=== PATIENT | male | born 1970 | race Caucasian/White ===

== ENCOUNTER → 2017-02-13 | Outpatient (REF) | payer BC ==
[~2017-02-13] MED LIST: ASPI81TA85 PO; AVAP150T31 PO; CALC600T7 PO; CELL500T PO; CYCLO25CA PO; DICY10SO PO; FERR325T3 PO; FOLI5INJ2 PO; LEVI20TA39 PO; MAGN400C2 PO; METO1TAB7 PO; PRED10PA PO; RANI1TAB6 PO; TERA10CA3 PO
[2017-02-13 12:43] LABS: MICROSCOPIC INDICATED? NO (NO)
[2017-02-13 13:12] LABS: PHOSPHORUS LEVEL 2.7 MG/DL (2.5-4.9)
== END ==
LOC: M LAB REF 12:00
PROVIDERS: ATTEND Internal Medicine
DX: N18.5 Chronic kidney disease, stage 5 (principal); D84.9 Immunodeficiency, unspecified; Z94.0 Kidney transplant status

== ENCOUNTER → 2020-02-23 | Outpatient (REF) | payer BC ==
[~2020-02-23] MED LIST changes: +AMLO1TAB25 PO; -ASPI81TA85 PO; +ASPI81TA86 PO; +CALC-212 PO; -CALC600T7 PO; +FOLI1TAB11 PO; +METO1TAB33 PO; +NIZA150C4 PO; +PRED10TA2 PO; +RANI-397 PO; -RANI1TAB6 PO
[2020-02-24 14:46] LABS: FOLATE > 24.0 NG/ML; VITAMIN B12 LEVEL 297 PG/ML
[2020-02-24 15:47] LABS: ANISOCYTOSIS 2+; ATYPICAL LYMPH 2 % (0-5); EOSINOPHILS 1 % (0-3); LYMPHOCYTES 8 % (16-44); MONOCYTES 4 % (0-5); NEUTROPHILS 83 % (28-66); PLATELET ESTIMATE DECREASED (NORMAL); POIKILOCYTOSIS 1+
== END ==
LOC: M LAB REF 12:25
PROVIDERS: ATTEND Internal Medicine
DX: N18.9 Chronic kidney disease, unspecified (principal); D63.1 Anemia in chronic kidney disease

== ENCOUNTER 2020-03-07 18:02 | Emergency (ER) | payer BC ==
[~2020-03-07] VITALS: Ht 182.9 cm; Wt 106.3 kg
[~2020-03-07 18:02] MED LIST changes: -AMLO1TAB25 PO; -FOLI1TAB11 PO; -METO1TAB33 PO; -NIZA150C4 PO; -PRED10TA2 PO
[2020-03-07] MEDS ORDERED: ASPIRIN 81 MG CHEW TABLET PO ONE (18:30)
[2020-03-07 18:35] LABS: BASO % 0.3 % (0.0-1.0); EOS % 0.4 % (0.0-3.0); HEMATOCRIT 50.1 % (42.0-52.0); HEMOGLOBIN 15.8 g/dl (13.5-17.5); LYMPH # 0.7 10^3/uL (1.5-5.0); LYMPH % 8.8 % (24.0-44.0); MEAN CORPUSCULAR HEMOGLOBIN 28.5 pg (27.0-33.0); MEAN CORPUSCULAR HGB CONC 31.5 g/dl (32.0-36.5); MEAN CORPUSCULAR VOLUME 90.3 fl (80.0-96.0); MONO # 0.6 10^3/uL (0.0-0.8); MONO % 7.4 % (0.0-5.0); NEUTROPHILS # 6.1 10^3/uL (1.5-8.5); NEUTROPHILS % 81.6 % (36.0-66.0); PLATELET COUNT, AUTOMATED 136 10^3/uL (150-450); RED BLOOD COUNT 5.55 10^6/uL (4.30-6.10); WHITE BLOOD COUNT 7.5 10^3/uL (4.0-10.0)
[2020-03-07 18:44] LABS: INR 0.95; PROTHROMBIN TIME 12.9 SECONDS (12.5-14.3)
[2020-03-07 18:45] LABS: PARTIAL THROMBOPLASTIN TIME 27.5 SECONDS (24.2-38.5)
--- NOTE | 2020-03-07 18:57 | REP ---
INDICATION: CHEST PAIN COMPARISON: 12/26/2011. TECHNIQUE: Portable AP view of the chest FINDINGS: The mediastinum and cardiac silhouette are stable and within normal limits for portable technique. The lung cordova are clear without acute consolidation, effusion, or pneumothorax. Skeletal structures are intact. IMPRESSION: No acute cardiopulmonary process appreciated. <Electronically signed by Vega Perez > 03/07/20 1889
[2020-03-07 19:32] LABS: ALBUMIN 3.4 GM/DL (3.2-5.2); ALT/SGPT 36 U/L (12-78); BILIRUBIN,DIRECT < 0.1 MG/DL (0.0-0.2); BILIRUBIN,TOTAL 0.7 MG/DL (0.2-1.0); BLOOD UREA NITROGEN 27 MG/DL (7-18); CALCIUM LEVEL 9.3 MG/DL (8.5-10.1); CARBON DIOXIDE LEVEL 25 MEQ/L (21-32); CHLORIDE LEVEL 109 MEQ/L (98-107); CK-MB VALUE MASS 1.9 NG/ML (<3.6); CPK CREATINE PHOSPHOKINASE 159 U/L (39-308); CREATININE FOR GFR 1.83 MG/DL (0.70-1.30); GLOMERULAR FILTRATION RATE 41.9 (>56); GLUCOSE, FASTING 148 MG/DL (70-100); LIPASE 384 U/L (73-393); MB/CK RELATIVE INDEX 1.19 (< OR =4); POTASSIUM SERUM 4.3 MEQ/L (3.5-5.1); SODIUM LEVEL 140 MEQ/L (136-145); THYROID STIMULATING HORMONE 0.468 uIU/ML (0.358-3.740); TROPONIN I 0.11 NG/ML (< 0.10)
[2020-03-07] MEDS ORDERED: HEPARIN DRIP 25,000 UNITS in IV 1 EA IV SCH (19:42)
[2020-03-07] MEDS ORDERED: CLOPIDOGREL 300 MG TAB (PLAVIX) PO ONE (19:45)
[2020-03-07] MEDS ORDERED: HEPARIN SOD (PORCINE) 5000UNITS/ML 1ML VIAL/SYRINGE IV ONE (19:45)
[2020-03-07] MEDS ORDERED: METO1TAB33 PO (19:46)
[2020-03-07] MEDS ORDERED: AMLO1TAB25 PO (19:46)
[2020-03-07] MEDS ORDERED: NIZA150C4 PO (19:46)
[2020-03-07] MEDS ORDERED: PRED10TA2 PO (19:46)
[2020-03-07] MEDS ORDERED: FOLI1TAB11 PO (19:46)
[2020-03-07 22:57] VITALS: BP 143/93
--- NOTE | 2020-03-09 09:03 | ECGEPIP ---
[facility] - ED Test Date: 2020-03-07 Pat Name: DIAN MADSEN JR Department: Room: - Gender: Male Ax Survey Worker: : [id number] Requested By: Emily Woods Order Number: [id number] Reading MD: Jagruti Lopez Measurements Intervals [place] Rate: 66 P: 16 AR: 154 QRS: 4 QRSD: 89 T: -4 QT: 412 QTc: 433 Interpretive Statements SINUS RHYTHM NSTTW abnormalities No prior Electronically Signed on 03-09-2020 9:02:55 EDT by Jagruti Lopez
== END 2020-03-07 23:09 | disposition short-term general hospital (02) ==
LOC: M ED 18:02
DX: I20.0 Unstable angina (principal); Z94.0 Kidney transplant status; Z79.899 Other long term (current) drug therapy
CPT/HCPCS: 36415; 71045; 80048; 80076; 82550; 82553; 83690; 84439; 84443; 84484; 85025; 85610; 85730; 93005; 93041; 94760; 96374; 99291; J1644; U0002

== ENCOUNTER → 2021-02-22 | Outpatient (REF) | payer BC ==
[~2021-02-22] MED LIST changes: +AMLO1TAB25 PO; +FOLI1TAB11 PO; +METO1TAB33 PO; +NIZA150C4 PO; +PRED10TA2 PO
[2021-02-22 17:23] LABS: TOTAL PROTEIN 6.2 GM/DL (6.4-8.2)
[2021-02-22 17:33] LABS: FOLATE 16.7 NG/ML; VITAMIN B12 LEVEL 410 PG/ML
[2021-02-23 15:15] LABS: ALBUMIN 4.01 GM/DL (3.29-5.55); ALBUMIN % 64.6 % (55.8-66.1); ALPHA-1-GLOBULIN % 4.7 % (2.9-4.9); ALPHA-1-GLOBULINS 0.29 GM/DL (0.17-0.41); ALPHA-2-GLOBULINS 0.73 GM/DL (0.42-0.99); ALPHA-2-GLOBULINS % 11.7 % (7.1-11.8); BETA-1-GLOBULINS % 6.5 % (4.7-7.2); BETA-2-GLOBULINS 0.27 GM/DL (0.19-0.55); BETA-2-GLOBULINS % 4.4 % (3.2-6.5); GAMMA GLOBULIN % 8.1 % (11.1-18.8)
== END ==
LOC: M LAB REF 16:05
PROVIDERS: ATTEND Internal Medicine
DX: G60.9 Hereditary and idiopathic neuropathy, unspecified (principal)

== ENCOUNTER → 2021-06-13 | Outpatient (REF) | payer BC ==
[~2021-06-13] MED LIST changes: +NIZA150C10 PO; -NIZA150C4 PO
== END ==
LOC: M LAB REF 16:24
PROVIDERS: ATTEND Physician Assistant Medical
DX: N39.0 Urinary tract infection, site not specified (principal)

== ENCOUNTER → 2021-07-13 | Outpatient (REF) | payer BC ==
[2021-07-13 12:06] LABS: BACTERIA, URINE AUTO 1+ (NEGATIVE); RBC, URINE AUTO 3 /HPF (0-3); SQUAMOUS EPITHELIAL CELL UR AU 0 /HPF (0-6); WBC, URINE AUTO TNTC /HPF (0-3)
== END ==
LOC: M LAB REF 11:28
PROVIDERS: ATTEND Physician Assistant Medical
DX: R30.0 Dysuria (principal)

== ENCOUNTER → 2021-10-17 | Outpatient (REF) | payer BC ==
[2021-10-17 21:09] LABS: ANISOCYTOSIS 1+; ATYPICAL LYMPH 7 % (0-5); LYMPHOCYTES 2 % (16-44); MONOCYTES 5 % (0-5); NEUTROPHILS 84 % (28-66)
[2021-10-17 21:10] LABS: PLATELET ESTIMATE DECREASED (NORMAL)
== END ==
LOC: M LAB REF 16:31
PROVIDERS: ATTEND Registered Nurse
DX: D72.9 Disorder of white blood cells, unspecified (principal)

== ENCOUNTER → 2021-10-18 | Outpatient (REF) | payer BC | LOC: M LAB REF 13:15 | PROVIDERS: ATTEND Internal Medicine | DX: R19.7 Diarrhea, unspecified (principal) ==

== ENCOUNTER → 2022-06-30 | Outpatient (CLI) | payer BC | LOC: M PLAIMG 10:45 | PROVIDERS: ATTEND Internal Medicine | DX: K86.2 Cyst of pancreas (principal); Z94.0 Kidney transplant status ==

== ENCOUNTER → 2023-02-21 | Outpatient (REF) | payer BC | LOC: M LAB REF 11:56 | PROVIDERS: ATTEND Internal Medicine | DX: N30.01 Acute cystitis with hematuria (principal); I12.9 Hypertensive chronic kidney disease with stage 1 through stage 4 chronic kidney disease, or unspecified chronic kidney disease; N18.9 Chronic kidney disease, unspecified ==

== ENCOUNTER → 2023-04-09 | Outpatient (CLI) | payer BC | LOC: M PLARAD 13:43 | PROVIDERS: ATTEND Internal Medicine | DX: D47.9 Neoplasm of uncertain behavior of lymphoid, hematopoietic and related tissue, unspecified (principal) | CPT/HCPCS: 78815; A9552 ==

== ENCOUNTER → 2023-07-05 | Outpatient (REF) | payer BC, OTHER | LOC: M LAB REF 14:33 | PROVIDERS: ATTEND Internal Medicine | DX: N39.0 Urinary tract infection, site not specified (principal) ==

== ENCOUNTER → 2023-10-05 | Outpatient (REF) | payer OTHER ==
[2023-10-05 17:35] LABS: FOLATE > 24.0 NG/ML (>5.4); VITAMIN B12 LEVEL 282 PG/ML (211-911)
== END ==
LOC: M LAB REF 16:16
PROVIDERS: ATTEND Internal Medicine
DX: G62.9 Polyneuropathy, unspecified (principal)

== ENCOUNTER → 2023-11-05 | Outpatient (REF) | payer OTHER | LOC: M LAB REF 16:40 | PROVIDERS: ATTEND Internal Medicine | DX: R31.0 Gross hematuria (principal) ==

== ENCOUNTER → 2024-02-21 | Outpatient (CLI) | payer OTHER | LOC: M WHC 10:24 | PROVIDERS: ATTEND Nurse Practitioner Family | DX: N50.3 Cyst of epididymis (principal) ==

== ENCOUNTER → 2024-05-21 | Outpatient (CLI) | payer OTHER | LOC: M RAD 10:09 | PROVIDERS: ATTEND Internal Medicine | DX: E11.51 Type 2 diabetes mellitus with diabetic peripheral angiopathy without gangrene (principal) ==

== ENCOUNTER 2024-07-21 16:55 | Emergency (ER) | payer OTHER ==
[~2024-07-21] VITALS: Ht 180.3 cm; Wt 106.3 kg
[2024-07-21 18:12] LABS: BASO % 0.4 % (0.0-1.0); EOS % 0.3 % (0.0-3.0); HEMATOCRIT 41.8 % (42.0-52.0); LYMPH # 0.6 10^3/uL (1.5-5.0); LYMPH % 8.3 % (24.0-44.0); MEAN CORPUSCULAR HEMOGLOBIN 28.9 pg (27.0-33.0); MEAN CORPUSCULAR HGB CONC 33.5 g/dl (32.0-36.5); MEAN CORPUSCULAR VOLUME 86.4 fl (80.0-96.0); MONO # 0.4 10^3/uL (0.0-0.8); MONO % 4.8 % (2.0-8.0); NEUTROPHILS # 6.7 10^3/uL (1.5-8.5); NEUTROPHILS % 85.9 % (36.0-66.0); PLATELET COUNT, AUTOMATED 116 10^3/uL (150-450); RED BLOOD COUNT 4.84 10^6/uL (4.30-6.10); WHITE BLOOD COUNT 7.7 10^3/uL (4.0-10.0)
[2024-07-21 18:28] LABS: CALCIUM LEVEL 8.7 MG/DL (8.5-10.1); CREATININE FOR GFR 2.08 MG/DL (0.70-1.30); GLOMERULAR FILTRATION RATE 35.6 (>56); MAGNESIUM LEVEL 1.6 MG/DL (1.8-2.4); POTASSIUM SERUM 2.9 MMOL/L (3.5-5.1)
[2024-07-21] MEDS: MAG SULF 1GM/100ML (MAG RUN) 1 GM in IV 1 EA IV ONE (18:34)
[2024-07-21] MEDS ORDERED: K-TA1TAB PO (18:37)
[2024-07-21] MEDS ORDERED: SLOWTAB2 PO (18:37)
[2024-07-21] MEDS: KCL 10MEQ/100ML SWI (KRUN) 10 MEQ in IV 1 EA IV ONE (19:34)
[2024-07-21 20:25] VITALS: O2SAT 97
[2024-07-21 20:30] VITALS: BP 135/91; TEMP 97
== END 2024-07-21 20:40 | disposition home or self-care (01) ==
LOC: M ED 16:55
DX: E87.6 Hypokalemia (principal); E83.42 Hypomagnesemia; N18.30 Chronic kidney disease, stage 3 unspecified; E11.9 Type 2 diabetes mellitus without complications; I10 Essential (primary) hypertension; Z85.72 Personal history of non-Hodgkin lymphomas; Z86.79 Personal history of other diseases of the circulatory system; Z79.899 Other long term (current) drug therapy; Z79.52 Long term (current) use of systemic steroids
CPT/HCPCS: 80048; 83735; 85025; 93005; 93041; 96365; 96366; 99285; J3475